=== PATIENT | male | born 1960 ===

== ENCOUNTER 2019-03-20 06:08 | Inpatient (IN) ==
[~2019-03-20 06:08] MED LIST: Vancomycin 1,000 MG, Sodium Chloride IRRigation 1,000 ML IR ONE
[2019-03-20] MEDS ORDERED: Albuterol 2.5 MG/3 ML NEBULIZER IH ONE (06:22)
[2019-03-20] MEDS ORDERED: CeFAZolin Syr 2,000MG/20 ML 2,000 MG/20 ML SYRINGE IVPB ONE (06:22)
[2019-03-20] MEDS ORDERED: Ringers Solution, Lactated 1,000 ML IVC SCH (06:30)
[2019-03-20] MEDS ORDERED: *HR* Rocuronium Bromide 50 MG/5 ML VIAL ONE (07:02)
[2019-03-20] MEDS ORDERED: *HR* Remifentanil 1 MG VIAL IVP ONE ×2 (07:02)
[2019-03-20] MEDS ORDERED: Lidocaine -MPF 4% 5 ML AMPUL ONE (07:02)
[2019-03-20] MEDS ORDERED: Lidocaine -MPF 2% 2 ML VIAL ONE (07:02)
[2019-03-20] MEDS ORDERED: *HR* Propofol 200 MG/20 ML VIAL IVP ONE (07:02)
[2019-03-20] MEDS ORDERED: Ondansetron 4 MG/2 ML VIAL ONE (07:02)
[2019-03-20] MEDS ORDERED: *HR* Phenylephrine 10 MG/ML VIAL ONE (07:02)
[2019-03-20] MEDS ORDERED: *HR* Midazolam HCl 2 MG/2 ML VIAL ONE (07:02)
[2019-03-20] MEDS ORDERED: *HR* FentaNYL (PF) 100 MCG/2 ML VIAL ONE (07:02)
[2019-03-20] MEDS ORDERED: *HR* Succinylcholine 200 MG/10 ML VIAL IVP ONE (07:02)
[2019-03-20] MEDS ORDERED: Dexamethasone 4 MG/ML VIAL ONE (07:02)
[2019-03-20] MEDS ORDERED: EPHEDrine 50 MG/ML VIAL ONE (07:08)
[2019-03-20] MEDS ORDERED: Heparin 1,000 UNITS/500 mL 0 ML ONE (07:17)
[2019-03-20] MEDS ORDERED: Protamine Sulfate 50 MG/5 ML VIAL IVP ONE (07:20)
[2019-03-20] MEDS ORDERED: Bupivacaine-MPF 0.25% 10 ML VIAL ONE (07:20)
[2019-03-20] MEDS ORDERED: Heparin 1,000 UNITS/500 mL 500 ML ONE (07:20)
[2019-03-20] MEDS ORDERED: *HR* OxyCODONE Immed Rel 5 MG TABLET PO PRN ×2 (07:35→11:39)
[2019-03-20] MEDS ORDERED: Ondansetron 4 MG/2 ML VIAL IVP ONE (07:35)
[2019-03-20] MEDS ORDERED: *HR* HYDROmorphone (PF) 1 MG/ML SYRINGE IVP PRN (07:35)
[2019-03-20] MEDS ORDERED: Calcium Gluconate 1,000 MG/10 ML VIAL ONE (07:37)
[2019-03-20] MEDS ORDERED: *HR* Atropine Sulfate 8 MG/20 ML VIAL IVP ONE (08:30)
[2019-03-20] MEDS ORDERED: *HR* Heparin 5,000 UNIT/ML VIAL ONE (09:02)
[2019-03-20] MEDS ORDERED: Neostigmine Methylsulfate 3 MG/3 ML SYRINGE ONE (09:52)
[2019-03-20] MEDS ORDERED: *HR* Promethazine 25 MG/ML VIAL IVP PRN (11:39)
[2019-03-20] MEDS ORDERED: Naloxone 0.4 MG/ML INJ IVP PRN (11:39)
[2019-03-20] MEDS ORDERED: *HR* Labetalol 20 MG/4 ML SYRINGE IVP PRN (11:39)
[2019-03-20] MEDS ORDERED: 0.9 % Sodium Chloride 1,000 ML IVC SCH (11:39)
[2019-03-20] MEDS ORDERED: *HR* HYDROcodone/Acet 5/325 mg TABLET PO PRN (11:39)
[2019-03-20] MEDS ORDERED: Nitroglycerin 0.4 MG TAB.SUBL SL PRN (11:39)
[2019-03-20] MEDS ORDERED: Acetaminophen 325 MG TABLET PO PRN (11:39)
[2019-03-20] MEDS: *HR* Metoprolol 5 MG/5 ML VIAL IVP SCH ×3 (13:34→23:56)
[2019-03-20] MEDS: Aspirin 81 MG TAB.CHEW PO SCH (13:38)
[2019-03-20 17:04] LABS: VBG Ionized Calcium 1.12 mmol/L (1.15-1.35)
[2019-03-20 17:26] LABS: BUN/Creatinine Ratio 15 (6-26); Blood Urea Nitrogen 12 mg/dL (6-20); Calcium 7.9 mg/dL (8.6-10.3); Carbon Dioxide 25 mEq/L (23-29); Chloride 104 mEq/L (98-107); Glucose 184 mg/dL (70-105); Magnesium 1.8 mg/dL (1.6-2.6); Osmolality,Calculated 285 (280-300); Potassium 4.3 mEq/L (3.5-5.1); Sodium 135 mEq/L (136-145); eGFR For African Americans > 60 (> 60); eGFR For Non-African Americans > 60 (> 60)
[2019-03-20] MEDS: *HR* Ticagrelor 90 MG TABLET PO SCH (20:12)
[2019-03-20] MEDS ORDERED: Calcium Gluconate 1gm/50mL 1 GM/50 ML BAG IVPB ONE (20:25)
[2019-03-20] MEDS ORDERED: Vancomycin 1,000 MG in D5% in Water 250 ML IVPB ONE (21:00)
[2019-03-21] MEDS: *HR* Metoprolol 5 MG/5 ML VIAL IVP SCH (05:07)
[2019-03-21] MEDS ORDERED: *HR* Heparin 5,000 UNIT/ML VIAL SQ SCH ×2 (06:00)
[2019-03-21] MEDS ORDERED: Metoprolol XL (24 HR) Succ 25 MG TAB.ER.24H PO SCH (09:00)
[2019-03-21] MEDS ORDERED: NON-FORMULARY MEDICATION 1 EACH EACH (Ezetimibe [Zetia] 10 MG) PO SCH (09:00)
[2019-03-21] MEDS: Aspirin 81 MG TAB.CHEW PO SCH (09:17)
[2019-03-21 11:34] VITALS: BP 106/65
[2019-03-21] MEDS: *HR* Ticagrelor 90 MG TABLET PO SCH (12:29)
== END 2019-03-21 13:08 | disposition home or self-care (01) | DRG 39 ==
LOC: SAMDAY 06:08 → 2NNU 11:20
PROVIDERS: ADMIT Surgery; ATTEND Surgery